=== PATIENT | female | born 1985 | race Two or more races ===

== ENCOUNTER → 2017-07-19 | Outpatient (CLI) | payer OTHER ==
[~2017-07-19] MED LIST: CIPROFLOXACIN H10 ML LEFT EYE; DEPO-PROVER400 MG/ML IM; FLEXERIL10 MG PO; IBUPROFEN600 MG PO; NOHOMEMEDS; ULTRAM50 MG PO; VALTREX50 MG/ML PO
== END | disposition home or self-care (01) ==
LOC: CDC 11:36
DX: E11.9 Type 2 diabetes mellitus without complications (principal); O09.90 Supervision of high risk pregnancy, unspecified, unspecified trimester
CPT/HCPCS: 93000

== ENCOUNTER 2017-08-20 11:53 | Inpatient (IN) | payer OTHER ==
[2017-08-20] VITALS (8 sets, daily range): BP systolic 111–125; BP diastolic 73–78
[~2017-08-20] VITALS: Ht 167.6 cm; Wt 80.9 kg
[2017-08-20] MEDS ORDERED: GLYBURIDE2.5 MG PO (16:18)
[2017-08-20] MEDS ORDERED: PRENATAL TABLE1 EAC3 PO (16:19)
[2017-08-20 16:48] LABS: EOSINOPHIL (%) 0.1 % (0-5); HEMATOCRIT 33.2 % (36.0-46.0); IMMATURE GRANULOCYTE COUNT 0.1 K/uL; INSTRUMENT ABS NEUTROPHIL CT 6.6 K/uL; LYMPHOCYTE COUNT 2.4 K/uL (1.0-2.8); MCH 28.6 PG (29.0-34.0); MCHC 33.4 G/DL (30.0-36.0); MCV 85.6 FL (83-99); MEAN PLAT.VOLUME 11.4 uM^3 (9.5-12.4); MONOCYTE (%) 5.9 % (3-12); MONOCYTE COUNT 0.6 K/uL (0-0.8); NEUTROPHIL (%) 68.3 % (45-76); NEUTROPHIL COUNT 6.6 K/uL (1.8-6.4); PLATELET COUNT 206 K/uL (156-360); RBC DIS.WIDTH-CV 14.6 % (11.8-14.6); RBC DIS.WIDTH-SD 45.1 % (39-53); RED BLOOD COUNT 3.88 M/uL (3.80-5.20); WHITE BLOOD COUNT 9.7 K/uL (4.1-10.2)
[2017-08-20 16:57] LABS: Estimated Average Glucose 114 mg/dL (70-123); HEMOGLOBIN A1c (GLYCOHEMOGLOB) 5.6 % HGB (Below 5.7)
[2017-08-20 17:21] LABS: POINT-OF-CARE METER ID UU13113692
[2017-08-20 21:26] LABS: POINT-OF-CARE METER ID UU13113692
[2017-08-21] VITALS (32 sets, daily range): BP systolic 93–151; BP diastolic 54–88
[2017-08-21 01:37] LABS: POINT-OF-CARE METER ID UU13113692; POINT-OF-CARE USER ID SNPMEH
[2017-08-21 06:36] LABS: POINT-OF-CARE METER ID UU13113692
[2017-08-21 14:52] LABS: POINT-OF-CARE METER ID UU13113801
[2017-08-21 21:23] LABS: POINT-OF-CARE METER ID UU13113692
[2017-08-21 21:23] LABS: POINT-OF-CARE METER ID UU13113692
[2017-08-22 06:38] LABS: EOSINOPHIL (%) 0.4 % (0-5); EOSINOPHIL COUNT 0.1 K/uL (0-0.3); HEMATOCRIT 27.5 % (36.0-46.0); IMMATURE GRANULOCYTE (%) 1.3 % (0.0-0.7); IMMATURE GRANULOCYTE COUNT 0.2 K/uL; INSTRUMENT ABS NEUTROPHIL CT 9.3 K/uL; LYMPHOCYTE COUNT 3.7 K/uL (1.0-2.8); MCH 29.7 PG (29.0-34.0); MCHC 34.2 G/DL (30.0-36.0); MCV 86.8 FL (83-99); MEAN PLAT.VOLUME 11.6 uM^3 (9.5-12.4); MONOCYTE (%) 6.1 % (3-12); MONOCYTE COUNT 0.9 K/uL (0-0.8); NEUTROPHIL (%) 65.9 % (45-76); NEUTROPHIL COUNT 9.3 K/uL (1.8-6.4); PLATELET COUNT 203 K/uL (156-360); RBC DIS.WIDTH-CV 14.6 % (11.8-14.6); RBC DIS.WIDTH-SD 45.8 % (39-53); RED BLOOD COUNT 3.17 M/uL (3.80-5.20); WHITE BLOOD COUNT 14.1 K/uL (4.1-10.2)
[2017-08-22 06:50] VITALS: BP 104/61
[2017-08-22 07:44] LABS: POINT-OF-CARE METER ID UU13113692; POINT-OF-CARE USER ID PUTRLG40
[2017-08-22 09:54] LABS: POINT-OF-CARE METER ID UU13113801; POINT-OF-CARE USER ID PUTRLG40
[2017-08-22 13:03] LABS: POINT-OF-CARE METER ID UU13113801; POINT-OF-CARE USER ID PUTRLG40
[2017-08-22 14:25] VITALS: BP 107/73
[2017-08-22 22:22] LABS: POINT-OF-CARE METER ID UU13113801
[2017-08-22 22:56] VITALS: BP 108/64
[2017-08-23 06:07] LABS: POINT-OF-CARE METER ID UU13113801
[2017-08-23 06:50] VITALS: BP 117/74
[2017-08-23 11:02] LABS: POINT-OF-CARE METER ID UU13113692; POINT-OF-CARE USER ID 608261309
[2017-08-23] MEDS ORDERED: FERROUS GLUCON324 MG PO (11:58)
[2017-08-23] MEDS ORDERED: CAMILA0.35 MG PO (11:58)
== END 2017-08-23 13:18 | disposition home or self-care (01) | DRG 775 ==
LOC: LDRP-OP 11:53 → 2WEST 11:54
PROVIDERS: Advanced Practice Midwife; Obstetrics & Gynecology
PROC: 10E0XZZ Delivery of Products of Conception, External Approach (ICD-10-PCS; principal; 2017-08-21)
PROC: 00HU33Z Insertion of Infusion Device into Spinal Canal, Percutaneous Approach (ICD-10-PCS; 2017-08-21)
PROC: 3E0R3BZ Introduction of Anesthetic Agent into Spinal Canal, Percutaneous Approach (ICD-10-PCS; 2017-08-21)
DX: O99.824 Streptococcus B carrier state complicating childbirth (principal); Z37.0 Single live birth; E11.9 Type 2 diabetes mellitus without complications; D62 Acute posthemorrhagic anemia; O69.1XX0 Labor and delivery complicated by cord around neck, with compression, not applicable or unspecified; E66.3 Overweight; Z3A.37 37 weeks gestation of pregnancy; O99.02 Anemia complicating childbirth
CPT/HCPCS: 76818; 82948; 83036; 85025; C1755; G0378; J0595; J2540; J3010; J7120